=== PATIENT | female | born 1970 | race Caucasian/White ===

== ENCOUNTER 2018-01-08 09:26 | Emergency (ER) | payer OTHER ==
[2018-01-08 09:56] VITALS: TEMP 97.6; O2SAT 98
--- NOTE | 2018-01-08 10:03 | ED PDOC ---
HPI: Skin/Bite Injury Time Seen by Provider: 01/08/18 09:44 Chief Complaint (Nursing): Lower Extremity Problem/Injury History Per: Patient Onset/Duration Of Symptoms: Other (5 months) Current Symptoms Are (Timing): Still Present Location Of Injury: Right: Chest, Leg Severity: Mild Additional Complaint(s): Erythemetous rash right pretibial area x 5 months mild itching. No drainage. Also noted mole right upper chest growing over past 4-5 months Past Medical History Vital Signs: Last Vital Signs Temp 97.6 F 01/08/18 09:53 Pulse 77 01/08/18 09:53 Resp 18 01/08/18 09:53 BP 118/82 01/08/18 09:53 Pulse Ox 98 01/08/18 09:53 - Medical History PMH: No Chronic Diseases - Family History Family History: States: Unknown Family Hx - Home Medications Home Medications: Ambulatory Orders Medication Instructions Recorded Ciprofloxacin HCl [Cipro] 500 mg PO BID #20 tab 01/02/15 Hydrocortisone Catalina 0.2% Cr 1 ea TP TID #1 tube 01/08/18 [Westcort] - Allergies Allergies/Adverse Reactions: Allergies Allergy/AdvReac Type Severity Reaction Status Date / Time No Known Allergies Allergy Verified 01/02/15 12:21 Review of Systems Constitutional: Negative for: Fever Skin: Positive for: Rash, Lesions Physical Exam - Physical Exam Appears: Positive for: Non-toxic, No Acute Distress Skin: Positive for: Rash (Erythemetous rash 1 cm right pretibial area. Flat confluent. Right upper chest brown raised 4 mm lesion,regular borders, no bleeding) - ECG O2 Sat by Pulse Oximetry: 98 Disposition - Clinical Impression Clinical Impression: Skin mole, Dermatitis - Patient ED Disposition Is Patient to be Admitted: No - Disposition Referrals: Scooter Geiger MD [Staff Provider] - Disposition: Routine/Home Disposition Time: 10:06 Condition: FAIR Prescriptions: Hydrocortisone Catalina 0.2% Cr [Westcort] 1 ea TP TID #1 tube Instructions: Moles on the Skin Print Language: UKRAINIAN
[2018-01-08 10:14] VITALS: BP 136/78; PULSE 78; RESP 19
== END 2018-01-08 10:36 | disposition home or self-care (01) ==
LOC: H.ER 09:26
DX: L30.9 Dermatitis, unspecified (principal); D22.5 Melanocytic nevi of trunk

== ENCOUNTER 2018-06-11 09:25 | Emergency (ER) | payer OTHER ==
[2018-06-11 11:34] LABS: BASO % 0.4 % (0.0-2.0); EOS % 0.7 % (0.0-4.0); HEMOGLOBIN 13.8 g/dL (12.0-16.0); LYMPH # 1.3 K/uL (1.0-4.3); LYMPH % 27.8 % (20.0-40.0); MEAN CELL VOLUME 93.6 fl (81.0-99.0); MEAN CORPUSCULAR HEMOGLOBIN 31.3 pg (27.0-31.0); MEAN CORPUSCULAR HGB CONC 33.5 g/dL (33.0-37.0); MEAN PLATELET VOLUME 8.2 fl (7.2-11.7); MONO # 0.3 K/uL (0.0-0.8); MONO % 7.1 % (0.0-10.0); NEUT # 3.1 K/uL (1.8-7.0); NRBC % 0.1 % (0.0-0.0); RBC 4.39 Mil/uL (3.80-5.20); RED CELL DISTRIBUTION WIDTH 12.8 % (11.5-14.5); WHITE BLOOD COUNT 4.8 K/uL (4.8-10.8)
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
[2018-06-11 11:42] VITALS: RESP 18; TEMP 97.7; O2SAT 100
[2018-06-11 11:53] LABS: ALB/GLOB RATIO 1.4 (1.0-2.1); ALBUMIN 4.7 g/dL (3.5-5.0); ALT/SGPT 26 U/L (9-52); AST/SGOT 24 U/L (14-36); BLOOD UREA NITROGEN 19 mg/dl (7-17); CALCIUM 9.9 mg/dL (8.4-10.2); GFR NON-AFRICAN AMERICAN > 60
--- NOTE | 2018-06-11 11:54 | CT ---
Date of service: 06/11/2018 PROCEDURE: CT HEAD WITHOUT CONTRAST. HISTORY: Trauma COMPARISON: None available. TECHNIQUE: Axial computed tomography images were obtained through the head/brain without intravenous contrast. Radiation dose: Total exam DLP = 801.24 mGy-cm. This CT exam was performed using one or more of the following dose reduction techniques: Automated exposure control, adjustment of the mA and/or kV according to patient size, and/or use of iterative reconstruction technique. FINDINGS: HEMORRHAGE: No acute parenchymal, subarachnoid or extra-axial hemorrhage. BRAIN: No mass effect or edema. No atrophy or chronic microvascular ischemic changes. VENTRICLES: Unremarkable. No hydrocephalus. CALVARIUM: No acute calvarial fracture seen.. PARANASAL SINUSES: Unremarkable as visualized. No significant inflammatory changes. Note made of a small bony density within 1 of the right mid superior ethmoid air cells consistent with a osteoma. MASTOID AIR CELLS: Unremarkable as visualized. No inflammatory changes. OTHER FINDINGS: None. IMPRESSION: No evidence of acute intracranial hemorrhage.
--- NOTE | 2018-06-11 12:05 | CT ---
Date of service: 06/11/2018 PROCEDURE: CT Cervical Spine without contrast HISTORY: Trauma COMPARISON: None available. TECHNIQUE: Axial computed tomography images were obtained of the cervical spine without the use of intravenous contrast. Coronal and sagittal reformatted images were created and reviewed. Radiation dose: Total exam DLP = 226.97 mGy-cm. This CT exam was performed using one or more of the following dose reduction techniques: Automated exposure control, adjustment of the mA and/or kV according to patient size, and/or use of iterative reconstruction technique. FINDINGS: VERTEBRAE: No acute compression fractures nor retropulsed fragments. Vertebral bodies exhibit relatively normal stature. There is mild straightening of the normal cervical lordosis which could be due to patient positioning in the gantry however underlying element of muscle spasm may contribute. Vertebral bodies otherwise exhibit normal alignment. Facets normally aligned. DISCS/SPINAL CANAL/NEURAL FORAMINA: At the C3-C4 level, there is relatively adequate disc height. Minimal broad-based bulge of the posterior annulus is present. The overall central canal appears marginal to adequate. Exit foramina also adequate. At the C4-C5 level, there is mild disc space narrowing more so along the anterior disc margin. Small central and bilateral disc bulge associate with a small calcification along the posterior annulus is present. The changes result in mild flattening of the ventral surface of the thecal sac reaching but not significantly compressing the ventral surface of the cord. Central canal appears marginal to adequate. Exit foramina also adequate. At the C5-C6 level, there is disc space narrowing with a minimal chronic appearing subchondral cystic changes. Small central and bilateral disc protrusion associate with a tiny calcification along the posterior annulus is present. The disc results in mild canal narrowing and flattening of the ventral surface of the spinal cord. There is minimal degenerative squaring of the uncovertebral joints and mild left facet arthropathy. Exit foramina appear slightly narrowed. At the C6-C7 level, there is adequate disc height. Minimal asymmetric central and right parasagittal disc bulge flattens the ventral surface of the thecal sac and appears to minimally flatten the ventral surface of cord. Central canal is mildly narrowed as well. Exit foramina appear adequate. PARASPINAL SOFT TISSUES: Paraspinal soft tissues appear grossly unremarkable. OTHER FINDINGS: Incidental note is made of a round/elliptical shaped predominately low-attenuation lesion right lobe thyroid gland measures approximately 16.5 x 15 0.1 mm. There are however internal areas of increased attenuation with what appears represent a more discrete slightly hyperdense lesion arising from the endoluminal surface possibly associate with a small calcification. Recommend follow-up thyroid ultrasound for further evaluation and exclude the possibility of a neoplasm. Minimal bilateral apical pleural thickening. IMPRESSION: No acute fractures. Minimal multilevel degenerative spondylosis as detailed above. Rounded/elliptical shaped low-attenuation lesion right lobe thyroid gland with central areas of increased attenuation and what appears represent a more discrete hyperdense nodule arising from the wall of the endoluminal surface of the nodule possibly cyst with small calcification as detailed above.. Recommend follow-up thyroid ultrasound..
--- NOTE | 2018-06-11 12:41 | CT ---
Date of service: 06/11/2018 PROCEDURE: CT Chest without contrast HISTORY: Trauma. COMPARISON: None available. TECHNIQUE: Contiguous axial images were obtained through the chest without intravenous contrast enhancement. Sagittal and coronal reconstructions were performed. Radiation dose: Total exam DLP = 178.67 mGy-cm. This CT exam was performed using one or more of the following dose reduction techniques: Automated exposure control, adjustment of the mA and/or kV according to patient size, and/or use of iterative reconstruction technique. FINDINGS: LUNGS: Lung wadsworth are free of focal consolidation. No parenchymal mass identified. The MEDIASTINUM: Unremarkable thoracic aorta. No aneurysm. Normal sized heart. Main pulmonary artery unremarkable. No vascular congestion. No lymphadenopathy. No aortic atherosclerotic calcification. The There is a small hiatal hernia.. Tiny calcification seen adjacent to the right aspect of the distal esophagus likely represent small calcified lymph node; rule out prior exposure to granulomatous disease process. The the the PLEURA: Minimal left apical pleural thickening with additional few more discrete tiny subpleural nodular densities that probably represent postinflammatory sequela.. Some minimal linear scarring right lung apex. No effusion significant on pleural. No pneumothorax. BONES: There are no acute rib fractures identified. Vertebral bodies intact. Incidental note made of a small bone island or osteoma within the T5 segment. Minimal multilevel degenerative spondylosis of the thoracic spine.. UPPER ABDOMEN: There is a small approximately 11.6 x 6.0 cm elliptical shaped low-attenuation lesion superior aspect left lobe liver near the diaphragmatic dome that is consistent with a small cyst based on Hounsfield units in the single digits. OTHER FINDINGS: None. IMPRESSION: No evidence of acute intrathoracic posttraumatic sequela. Minimal left apical pleural thickening with a few small subpleural nodular densities likely post inflammatory in origin.. Minimal linear scarring right lung apex. Small hepatic cyst left lobe liver. The the
[2018-06-11 13:52] VITALS: PULSE 83
[2018-06-11 14:55] VITALS: BP 120/74
--- NOTE | 2018-06-11 18:59 | CARD ---
APPROVED REPORT Date of service: 06/11/2018 EKG Measurement Heart [id number] <Conclusion> Normal sinus rhythm Normal ECG
== END 2018-06-11 13:54 | disposition home or self-care (01) ==
LOC: H.ER 09:25
DX: R51 Headache (principal); S20.219A Contusion of unspecified front wall of thorax, initial encounter; V43.62XA Car passenger injured in collision with other type car in traffic accident, initial encounter; Y92.410 Unspecified street and highway as the place of occurrence of the external cause; E04.1 Nontoxic single thyroid nodule; K76.89 Other specified diseases of liver

== ENCOUNTER 2018-07-29 18:22 | Emergency (ER) | payer SELFPAY ==
[2018-07-29 19:00] VITALS: BP 128/81; PULSE 76; RESP 18; TEMP 98.6; O2SAT 99
--- NOTE | 2018-07-29 19:54 | ED PDOC ---
HPI: Skin/Bite Injury Time Seen by Provider: 07/29/18 19:14 Chief Complaint (Nursing): Abnormal Skin Integrity Chief Complaint (Provider): Abnormal Skin Integrity History Per: Patient History/Exam Limitations: no limitations Onset/Duration Of Symptoms: Days Current Symptoms Are (Timing): Still Present Additional Complaint(s): 47 y/o female with a PMHx of thyroid nodules presents to the ED for evaluation of a possible spider rash to the back of her left leg. Patient states for the past three days, she felt a sudden burning sensation that worsened when she was in the shower with some associated itching. Patient additionally reports of using hydrocortizone cream as she thought it was a spider bite despite not seeing any spider or insects. Patient notes rash has progressed. Of note, patient notes of having a history of Varicella as an adult in her 20s. Patient states she has been under stress as she needs a thyroid biopsy and is unable to obtain an appointment. Otherwise, patient denies fever and chills. PMD: Clinic Past Medical History Reviewed: Historical Data, Nursing Documentation, Vital Signs Vital Signs: Last Vital Signs Temp 98.6 F 07/29/18 18:56 Pulse 76 07/29/18 18:56 Resp 18 07/29/18 18:56 BP 128/81 07/29/18 18:56 Pulse Ox 99 07/29/18 18:56 - Medical History Other PMH: Varicella as an adult in her 20s, thyroid nodules - Surgical History Surgical History: No Surg Hx - Family History Family History: States: Unknown Family Hx - Home Medications Home Medications: Ambulatory Orders Medication Instructions Recorded Ciprofloxacin HCl [Cipro] 500 mg PO BID #20 tab 01/02/15 Hydrocortisone [place]ina 0.2% Cr 1 ea TP TID #1 tube 01/08/18 [Westcort] Valacyclovir HCl [Valacyclovir] 1,000 mg PO TID 7 Days tablet 07/29/18 - Allergies Allergies/Adverse Reactions: Allergies Allergy/AdvReac Type Severity Reaction Status Date / Time No Known Allergies Allergy Verified 06/11/18 09:49 Review of Systems ROS Statement: Except As Marked, All Systems Reviewed And Found Negative Skin: Positive for: Rash Physical Exam - Reviewed Nursing Documentation Reviewed: Yes Vital Signs Reviewed: Yes - Physical Exam Skin: Positive for: Rash (4 vesicular lesions that appear to be resolved with associated purpura rash. No erythema or drainage noted. ) Neurologic/Psych: Positive for: Alert, Oriented - ECG O2 Sat by Pulse Oximetry: 99 (RA) Pulse Ox Interpretation: Normal Medical Decision Making Medical Decision Making: Time: 1955 Impression: early herpes zoster Plan: -- Patient informed that this is likely the beginning of herpes zoster. Patient will be given a prescription of valtrex. However, given lesions began three days ago, it may continue to progress despite medications. Time: 2000 -- Patient instructed to follow up with PMD for further evaluation if rash progresses. Patient advised to use bacitracin as needed if lesions open. Patient is stable for discharge home. _ Scribe Attestation: Documented by Christelle Garrett, acting as a scribe Jayesh Patino PA-C. Provider Scribe Attestation: All medical record entries made by the Scribe were at my direction and personally dictated by me. I have reviewed the chart and agree that the record accurately reflects my personal performance of the history, physical exam, medical decision making, and the department course for this patient. I have also personally directed, reviewed, and agree with the discharge instructions and disposition. Disposition - Clinical Impression Clinical Impression: Herpes zoster - Patient ED Disposition Is Patient to be Admitted: No Counseled Patient/Family Regarding: Studies Performed, Diagnosis, Need For Followup, Rx Given - Disposition Referrals: [facility] [Outside] [facility] [Outside] Disposition: Routine/Home Disposition Time: 20:01 Condition: STABLE Additional Instructions: Follow up with your primary care doctor as you may have worsening of your rash despite medications. Take Ibuprofen for pain. Return to ER if you develop any fevers, chills. Prescriptions: Valacyclovir HCl [Valacyclovir] 1,000 mg PO TID 7 Days tablet Instructions: Shingles (DC) Forms: [employer] (Namibian) Print Language: PERSIAN
== END 2018-07-29 20:08 | disposition home or self-care (01) ==
LOC: H.ER 18:22
DX: B02.9 Zoster without complications (principal)

== ENCOUNTER 2018-07-31 10:11 | Day surgery (SDC) | payer SELFPAY ==
[2018-07-31 10:55] VITALS: RESP 18
[2018-07-31 10:57] VITALS: BMI 18.8
[2018-07-31] MEDS ORDERED: Lidocaine Hydrochloride 1% 10 ML ONE (11:36)
--- NOTE | 2018-07-31 13:34 | PCM.SURG1 ---
Surgeon's Initial Post Op Note - Surgeon's Notes Surgeon: Estevan Eason MD Brush And Broom Clipper: none Type of Anesthesia: Local Pre-Operative Diagnosis: Right thyroid nodule Operative Findings: US showed a mixed solid and cystic right thyroid nodule. Post-Operative Diagnosis: Right thyroid nodule Operation Performed: US guided FNA Specimen/Specimens Removed: 25 g FNA x 5 passes Estimated Blood Loss: EBL {In ML}: 1 Blood Products Given: N/A Drains Used: No Drains Post-Op Condition: Good Date of Surgery/Procedure: 07/31/18 Time of Surgery/Procedure: 13:25
--- NOTE | 2018-07-31 13:35 | CP.SDSHP ---
Same Day Surgery H & P - History Proposed Procedure: US guided FNA of thyroid nodule Pre-Op Diagnosis: thyroid nodule - Allergies Allergies: Allergies No Known Allergies Allergy (Verified 07/31/18 10:51) - Physical Exam Vital Signs: Vital Signs 07/31/18 07/31/18 07/31/18 10:35 10:36 13:29 Temperature 98.2 F 99.7 F H Pulse Rate 86 86 71 Respiratory 18 18 Rate Blood Pressure 119/82 133/78 O2 Sat by Pulse 99 99 Oximetry Mental Status: Alert & Oriented x3 - Impression Impression: Pt w a mixed solid and cystic right thyroid nodule. Plan US guided FNA. Pt. Evaluated Today:Candidate for Anesthesia & Procedure: No - Date & Time Date: 07/31/18 Time: 13:34 Short Stay Discharge - Short Stay Discharge Admitting Diagnosis/Reason for Visit: E04.01 Disposition: HOME/ ROUTINE Referrals: FAMILY PROVIDER,NO [Primary Care Provider] -
[2018-07-31 14:27] VITALS: BP 146/90; PULSE 71; TEMP 97.7; O2SAT 100
== END 2018-07-31 14:45 | disposition home or self-care (01) ==
LOC: H.OPSURG 10:11
PROVIDERS: ATTEND Family Medicine
DX: E04.1 Nontoxic single thyroid nodule (principal)

== ENCOUNTER 2018-08-05 14:58 | Emergency (ER) | payer SELFPAY ==
[2018-08-05 16:24] VITALS: BP 125/81; PULSE 78; RESP 16; TEMP 98.2; O2SAT 99; BMI 19.5
--- NOTE | 2018-08-05 16:54 | ED PDOC ---
Lower Extremity Pain/Injury Time Seen by Provider: 08/05/18 16:30 Chief Complaint (Nursing): Abnormal Skin Integrity Chief Complaint (Provider): rash/ leg pain History Per: Patient History/Exam Limitations: no limitations Onset/Duration Of Symptoms: Days Current Symptoms Are (Timing): Still Present Severity: Mild Pain Scale Rating Of: 6 Additional Complaint(s): 47 y/o female present to ed with posterior left lower leg pain with rash for over one week. Pt reports she was seen in ED last week Sunday for same and dx valacyclovir 1000mg PO TID which she did not start because she was due to go for Thyroid biopsy on Sunday. Today pt comes to ed because she wants to know if she should start valacyclovir and because she continues with pain to left leg rad down to left leg. Pt has been taking advil at home with some relief. Pt reports subjective yesterday, no fever today. Pt verbalizes she feels better today. Past Medical History Reviewed: Historical Data, Nursing Documentation, Vital Signs Vital Signs: Last Vital Signs Temp 98.2 F 08/05/18 16:23 Pulse 78 08/05/18 16:23 Resp 16 08/05/18 16:23 BP 125/81 08/05/18 16:23 Pulse Ox 99 08/05/18 16:23 - Medical History PMH: Migraine Denies: Chronic Kidney Disease - Surgical History Surgical History: No Surg Hx - Family History Family History: States: Unknown Family Hx - Home Medications Home Medications: Ambulatory Orders Medication Instructions Recorded Hydrocortisone [place] 0.2% Cr 1 ea TP TID #1 tube 01/08/18 [Westcort] Valacyclovir HCl [Valacyclovir] 1,000 mg PO TID 7 Days tablet 07/29/18 Cholecalciferol [Vitamin D] 1,000 iu PO DAILY 07/31/18 Multivitamin [Multivitamins] 1 each PO DAILY 07/31/18 - Allergies Allergies/Adverse Reactions: Allergies Allergy/AdvReac Type Severity Reaction Status Date / Time No Known Allergies Allergy Verified 07/31/18 10:51 Wells Criteria for PE - Wells Criteria for Pulmonary Embolism Clinical Signs and Symptoms of DVT: No P.E is #1 Diagnosis, or Equally Likely: No Heart Rate >100: No Immobilization at least 3 days;Surgery previous 4 weeks: No Previous, objectively diagnosed PE or DVT: No Hemoptysis: No Malignancy w/treatment within 6 months, or palliative: No Total Score: 0 Review of Systems Constitutional: Positive for: Fever (yesterday, afebrile today) Skin: Positive for: Rash, Lesions (posterior left lower leg) Physical Exam - Reviewed Nursing Documentation Reviewed: Yes Vital Signs Reviewed: Yes - Physical Exam Appears: Positive for: Well, Non-toxic, No Acute Distress Head Exam: Positive for: ATRAUMATIC, NORMAL INSPECTION, NORMOCEPHALIC Skin: Positive for: Normal Color, Rash (4 lesions, flat, dry, slight erythema surrounding edges only. no evidence of cellulitis.no lesions or redness seen on left plantar aspect of the foot. ) Eye Exam: Positive for: Normal appearance ENT: Positive for: Normal ENT Inspection Neck: Positive for: Normal, Painless ROM, Supple Cardiovascular/Chest: Positive for: Regular Rate, Rhythm Respiratory: Positive for: Normal Breath Sounds Pulses-Dorsalis Pedis (L): 2+ Gastrointestinal/Abdominal: Positive for: Normal Exam Back: Positive for: Normal Inspection Extremity: Positive for: Normal ROM, Tenderness (left lower leg point tendernes to area with rash. no calf swelling or tenderness ) Lymphatic: Positive for: Normal Exam Neurological/Psych: Positive for: Awake, Alert, Normal Tone - ECG O2 Sat by Pulse Oximetry: 99 - Progress ED Course And Treament: case discussed with Dr. Mix, pt may be d/c home with no further tx. Pt advised she may take Valcyclovir as ordered but informed that it may or may not improve symptoms due to infection with viral illness has extended over one week. Instructed to continue taking advil for pain. Follow-up with PMD if problem persists. Pt also advised on return to ed precautions. Pt verbalizes understanding. Disposition - Clinical Impression Clinical Impression: Shingles - Patient ED Disposition Is Patient to be Admitted: No Counseled Patient/Family Regarding: Need For Followup - Disposition Disposition: Routine/Home Disposition Time: 17:00 Condition: STABLE Instructions: Joselin Print Language: [place] CITIZEN
== END 2018-08-05 17:22 | disposition home or self-care (01) ==
LOC: H.ER 14:58
DX: B02.9 Zoster without complications (principal)

== ENCOUNTER 2018-08-21 08:53 | Emergency (ER) | payer SELFPAY ==
[2018-08-21 09:02] VITALS: BMI 20.5
--- NOTE | 2018-08-21 10:04 | ED PDOC ---
HPI: CCC, URI, Sore Throat Time Seen by Provider: 08/21/18 09:15 Chief Complaint (Nursing): ENT Problem Chief Complaint (Provider): ENT Problem History Per: Patient History/Exam Limitations: no limitations Onset/Duration Of Symptoms: Days Current Symptoms Are (Timing): Still Present Location Of Pain: Throat Additional Complaint(s): 48 year old female with a past medical history of migraines who is presenting to the ED for evaluation of pain to neck/throat area ongoing for 2 days. Patient states that she feels a small bulge in her throat and reports worsened pain when she swallows or coughs. She states that she has been taking ibuprofen with no relief in symptoms. Of note, patient states that she had thyroid testing done 3 weeks ago with normal results. PMD: Clinic Past Medical History Reviewed: Historical Data, Nursing Documentation, Vital Signs Vital Signs: Last Vital Signs Temp 99.6 F 08/21/18 09:00 Pulse 84 08/21/18 09:00 Resp 17 08/21/18 09:00 BP 128/83 08/21/18 09:00 Pulse Ox 98 08/21/18 09:00 - Medical History PMH: Migraine Denies: Chronic Kidney Disease - Surgical History Other surgeries: cyst removal from chest - Family History Family History: States: Unknown Family Hx - Social History Ex-Smoker (has not smoked in the last 12 months): No Alcohol: None Drugs: Denies - Home Medications Home Medications: Ambulatory Orders Medication Instructions Recorded Hydrocortisone Catalina 0.2% Cr 1 ea TP TID #1 tube 01/08/18 [Westcort] Valacyclovir HCl [Valacyclovir] 1,000 mg PO TID 7 Days tablet 07/29/18 Cholecalciferol [Vitamin D] 1,000 iu PO DAILY 07/31/18 Multivitamin [Multivitamins] 1 each PO DAILY 07/31/18 Naproxen [Naprosyn] 500 mg PO BID PRN #15 tablet 08/21/18 - Allergies Allergies/Adverse Reactions: Allergies Allergy/AdvReac Type Severity Reaction Status Date / Time No Known Allergies Allergy Verified 07/31/18 10:51 Review of Systems ROS Statement: Except As Marked, All Systems Reviewed And Found Negative Constitutional: Negative for: Fever ENT: Positive for: Throat Pain Physical Exam - Reviewed Nursing Documentation Reviewed: Yes Vital Signs Reviewed: Yes - Physical Exam Appears: Positive for: Non-toxic, No Acute Distress Head Exam: Positive for: ATRAUMATIC, NORMAL INSPECTION, NORMOCEPHALIC Skin: Positive for: Normal Color, Warm, DRY Eye Exam: Positive for: Normal appearance ENT: Positive for: Other (tender mass to right anterior cervical area ) Neck: Positive for: Normal, Painless ROM. Negative for: Supple Cardiovascular/Chest: Positive for: Regular Rate, Rhythm. Negative for: Murmur Respiratory: Positive for: Normal Breath Sounds. Negative for: Respiratory Distress Extremity: Positive for: Normal ROM. Negative for: Deformity, Swelling Neurological/Psych: Positive for: Awake, Alert, Normal Tone, Oriented. Negative for: Motor/Sensory Deficits - Laboratory Results Result Diagrams: 08/21/18 10:07 08/21/18 10:07 - ECG O2 Sat by Pulse Oximetry: 98 (RA) Pulse Ox Interpretation: Normal Medical Decision Making Medical Decision Making: Time: 9:53 Plan: --CT Neck --CMP --ED Urine --CBC --Coags --Toradol 15 mg IVP Accession No. : [id number] Patient Name / ID : SPENCER PADGETT / [id number] Exam Date : 08/21/2018 12:02:33 ( Approved ) Study Comment : Sex / Age : F / 48Y Creator : Mike Hogue MD Dictator : Mike Hogue MD Neighborhood Coordinator : Joiner Apprentice : Mike Hogue MD Approver2 : Report Date : 08/21/2018 13:05:45 My Comment : Date of service: 08/21/2018 PROCEDURE: CT NECK WITH CONTRAST HISTORY: Mass R anterior neck COMPARISON: Thyroid ultrasound examination 07/08/2018. Please note the patient has undergone thyroid FNA biopsy on 07/31/2018. TECHNIQUE: CT of the neck with intravenous contrast. Coronal and sagittal reformats generated. Intravenous contrast dose: 95 mL Omnipaque 300 Radiation dose: Total exam DLP = 255.98 mGy-cm. This CT exam was performed using one or more of the following dose reduction techniques: Automated exposure control, adjustment of the mA and/or kV according to patient size, and/or use of iterative reconstruction technique. FINDINGS: NASOPHARYNX: Unremarkable. SUPRAHYOID NECK: Unremarkable oropharynx, oral cavity, parapharyngeal space and retropharyngeal space. INFRAHYOID NECK: Unremarkable larynx, hypopharynx, and supraglottic space. Vocal cords intact. MASS: Thyroid gland normal size. Two nodules are seen in the right lobe of thyroid. These measure 1.8 cm and 1.2 cm in respective dimensions. Correlate with thyroid ultrasound examination. There is an enhancing nodule seen in the more inferior 1.2 cm nodule. There is some enhancing septation seen in the more superior nodule. There is no other thyroid nodule appreciated. GLANDS: Parotid and submandibular glands unremarkable. LYMPH NODES: Normal. No lymphadenopathy. CERVICAL SPINE: No fracture or focal lesion. VASCULAR STRUCTURES: Unremarkable. OTHER FINDINGS: None. IMPRESSION: Two nodules in right lobe of thyroid. These correspond to nodule seen on thyroid ultrasound examination of 07/08/2018. The patient has undergone thyroid FNA biopsy on 07/31/2018. Correlate with results of that examination. No other significant abnormality. Scribe Attestation: Documented by Viridiana Valdovinos, acting as a scribe for Toya Anaya MD. Provider Scribe Attestation: All medical record entries made by the Scribe were at my direction and personally dictated by me. I have reviewed the chart and agree that the record accurately reflects my personal performance of the history, physical exam, medical decision making, and the department course for this patient. I have also personally directed, reviewed, and agree with the discharge instructions and disposition. Disposition - Clinical Impression Clinical Impression: Thyroid nodule - Disposition Referrals: [facility] [Outside] Disposition: Routine/Home Disposition Time: 13:30 Condition: STABLE Prescriptions: Naproxen [Naprosyn] 500 mg PO BID PRN #15 tablet PRN Reason: Pain, Moderate (4-7) Instructions: Thyroid Nodules Forms: [facility] (Ugandan) Print Language: ZAMBIAN
[2018-08-21 10:18] LABS: BASO % 0.5 % (0.0-2.0); EOS # 0.1 K/uL (0.0-0.7); LYMPH # 1.3 K/uL (1.0-4.3); LYMPH % 23.2 % (20.0-40.0); MEAN CELL VOLUME 91.4 fl (81.0-99.0); MEAN CORPUSCULAR HEMOGLOBIN 31.1 pg (27.0-31.0); MEAN PLATELET VOLUME 8.3 fl (7.2-11.7); MONO # 0.4 K/uL (0.0-0.8); MONO % 7.3 % (0.0-10.0); NEUT # 3.9 K/uL (1.8-7.0); NRBC % 0.2 % (0.0-0.0); RBC 4.17 Mil/uL (3.80-5.20); RED CELL DISTRIBUTION WIDTH 12.8 % (11.5-14.5); WHITE BLOOD COUNT 5.7 K/uL (4.8-10.8)
[2018-08-21 10:25] LABS: PROTHROMBIN TIME 11.4 Seconds (9.8-13.1)
[2018-08-21 10:28] LABS: PARTIAL THROMBOPLASTIN TIME 31.4 Seconds (25.6-37.1)
[2018-08-21 10:37] LABS: ALB/GLOB RATIO 1.3 (1.0-2.1); ALBUMIN 4.5 g/dL (3.5-5.0); ALT/SGPT 16 U/L (9-52); AST/SGOT 24 U/L (14-36); BLOOD UREA NITROGEN 15 mg/dl (7-17); CALCIUM 9.7 mg/dL (8.4-10.2); GFR NON-AFRICAN AMERICAN > 60
[2018-08-21] MEDS ORDERED: Iohexol 300 100 ML IJ ONE (10:58)
--- NOTE | 2018-08-21 13:09 | CT ---
Date of service: 08/21/2018 PROCEDURE: CT NECK WITH CONTRAST HISTORY: Mass R anterior neck COMPARISON: Thyroid ultrasound examination 07/08/2018. Please note the patient has undergone thyroid FNA biopsy on 07/31/2018. TECHNIQUE: CT of the neck with intravenous contrast. Coronal and sagittal reformats generated. Intravenous contrast dose: 95 mL Omnipaque 300 Radiation dose: Total exam DLP = 255.98 mGy-cm. This CT exam was performed using one or more of the following dose reduction techniques: Automated exposure control, adjustment of the mA and/or kV according to patient size, and/or use of iterative reconstruction technique. FINDINGS: NASOPHARYNX: Unremarkable. SUPRAHYOID NECK: Unremarkable oropharynx, oral cavity, parapharyngeal space and retropharyngeal space. INFRAHYOID NECK: Unremarkable larynx, hypopharynx, and supraglottic space. Vocal cords intact. MASS: Thyroid gland normal size. Two nodules are seen in the right lobe of thyroid. These measure 1.8 cm and 1.2 cm in respective dimensions. Correlate with thyroid ultrasound examination. There is an enhancing nodule seen in the more inferior 1.2 cm nodule. There is some enhancing septation seen in the more superior nodule. There is no other thyroid nodule appreciated. GLANDS: Parotid and submandibular glands unremarkable. LYMPH NODES: Normal. No lymphadenopathy. CERVICAL SPINE: No fracture or focal lesion. VASCULAR STRUCTURES: Unremarkable. OTHER FINDINGS: None. IMPRESSION: Two nodules in right lobe of thyroid. These correspond to nodule seen on thyroid ultrasound examination of 07/08/2018. The patient has undergone thyroid FNA biopsy on 07/31/2018. Correlate with results of that examination. No other significant abnormality.
[2018-08-21 15:00] VITALS: BP 124/80; PULSE 88; RESP 18; TEMP 98.9
[2018-08-21 15:18] VITALS: O2SAT 98
== END 2018-08-21 14:57 | disposition home or self-care (01) ==
LOC: H.ER 08:53
DX: E04.2 Nontoxic multinodular goiter (principal); Z87.891 Personal history of nicotine dependence
CPT/HCPCS: 70491; 80053; 81025; 85025; 85610; 85730; 96374; 99284; J1885; Q9967